=== PATIENT | male | born 1980 | race Caucasian/White ===

== ENCOUNTER 2017-08-11 21:32 | Emergency (ER) | payer BC ==
[2017-08-11 21:37] VITALS: RESP 18
[2017-08-11] MEDS ORDERED: ASPIRIN 81 MG PO STA (22:01)
--- NOTE | 2017-08-11 22:08 | ED ---
Chest Pain HPI - General Chief Complaint: Chest Pain Stated Complaint: chest heaviness/lightheaded Time Seen by Provider: 08/11/17 21:41 Source: patient, RN notes reviewed Mode of arrival: ambulatory Limitations: no limitations - History of Present Illness Initial Comments: This is a 36-year-old male who presents to the emergency department with chief complaint of chest pain. Last Friday, patient reports that he developed left shoulder pain that radiated down his arm and up to his neck. He then developed chest tightness across the chest, shortness of breath and lightheadedness. Patient states that he has had an episode like this 2 years ago and was admitted for a 24-hour observation. He states that all tests came back normal. He states that he underwent a cardiac stress test and this was also normal. Patient states that on Friday he had a mild episode of the chest tightness. He states that this morning he developed chest pain but it did not go away . He states that it has been consistent throughout the day and fluctuates between a pain level of 2/10-5/10. Patient states that this evening, at approximately 8 :20 PM, the chest pain increased in severity to 8/10. Patient describes the pain as somebody sitting on his chest. He currently rates his pain as 2/10. He states that he does not feel short of breath nor have left arm pain any longer but does feel lightheaded. He denies any diaphoresis, nausea or vomiting. He states he has a family history of cardiac disease. He states that his grandfather at the age of 38 from a heart attack and his father at the age of 58 from a heart attack. Patient denies any medical history and states he only takes a multivitamin daily. He is a nonsmoker and denies drug or alcohol use. Denies any recent hospitalizations or surgeries. - Related Data Home Medications Medication Instructions Recorded Confirmed Multivitamin [Men's Multi-Vitamin] 1 tab PO DAILY 05/04/15 08/11/17 Allergies Allergy/AdvReac Type Severity Reaction Status Date / Time No Known Allergies Allergy Verified 08/11/17 22:02 Review of Systems ROS Statement: Those systems with pertinent positive or pertinent negative responses have been documented in the HPI. ROS Other: All systems not noted in ROS Statement are negative. EKG Findings - EKG Comments: EKG Findings:: 21:48:15. Normal sinus rhythm, nonspecific ST abnormality. Ventricular rate 91 bpm, HI interval 142, QRS duration 108, QT/QTC 374/460. No evidence of ST segment elevation or depression. Repeat EKG at 2:54:31. Normal sinus rhythm. Ventricular rate 71 bpm, HI interval 154, QRS duration 104, QT/ QTC 388/421. No evidence of ST segment elevation or depression. Past Medical History Past Medical History: No Reported History Additional Past Medical History / Comment(s): HAS GALL STONE History of Any Multi-Drug Resistant Organisms: None Reported Past Surgical History: No Surgical Hx Reported Additional Past Surgical History / Comment(s): WISDOM TEETH, ERCP Past Anesthesia/Blood Transfusion Reactions: No Reported Reaction Past Psychological History: No Psychological Hx Reported Smoking Status: Never smoker Past Alcohol Use History: Rare Past Drug Use History: None Reported - Past Family History Father Family Medical History: Myocardial Infarction ([place]) General Exam - General Exam Comments Initial Comments: General: Awake and alert, well-developed; in no apparent distress. HEENT: Head atraumatic, normocephalic. Pupils are equal, round and reactive to light. Extraocular movements intact. Oropharynx moist without erythema or exudate. Neck: Supple. Normal ROM. Cardiovascular: Regular rate and rhythm. No murmurs, rubs or gallops. Chest symmetrical. No tenderness on palpation of chest wall. Respiratory: Lungs clear to auscultation bilaterally. No wheezes, rales or rhonchi. Normal respiratory effort with no use of accessory muscles. Abdomen: Soft, non-tender, non-distended. No rigidity, rebound or guarding. Normal bowel sounds in all 4 quadrants. Musculoskeletal: Normal ROM, no tenderness bilateral upper and lower extremities. Ambulating normally. Skin: Rud[place], warm and dry without rashes or lesions. Neurological: Alert and oriented x3. CN II-XII grossly intact. Speech is fluent and answers are appropriate. No focal neuro deficits. Psychiatric: Normal mood and affect. No overt signs of depression or anxiety noted. Limitations: no limitations Course Vital Signs 08/11/17 08/12/17 21:33 01:43 Temperature 98.6 F 97.6 F Pulse Rate 104 H 83 Respiratory 18 18 Rate Blood Pressure 160/92 132/77 O2 Sat by Pulse 100 99 Oximetry - Reevaluation(s) Reevaluation #1: At this time, patient is resting comfortably in bed. He states that he is asymptomatic. Lab results were discussed with patient. A repeat troponin will be drawn at 2:22. Patient is in agreement with this. 08/11/17 23:52 Chest Pain MDM - MDM This is a 36-year-old male who presents to the emergency department with chief complaint of chest pain. Patient has had 3 episodes of chest tightness since last Friday. He complains of associated shortness of breath and lightheadedness. Denies nausea or vomiting, diaphoresis. Patient states he is generally healthy and takes no medications other than a multivitamin. While in the emergency department, patient has been asymptomatic. EKG revealed a normal sinus rhythm with nonspecific ST abnormalities. No evidence of ST segment elevation or depression. CBC and CMP are unremarkable. Troponin is negative. Low likelihood for pulmonary embolism. No recent hospitalizations or surgeries , no history of DVT or PE, no coagulopathies. Patient is a nonsmoker. Discussed obtaining a d-dimer and patient declines. A repeat troponin was drawn 4 hours after the first troponin. This is negative. Repeat EKG reveals normal sinus rhythm. No evidence of ST segment elevation or depression. Patient vital signs are stable and he is in acute distress. He will be discharged home at this time. Recommended following up with his primary care provider. He is in agreement with plan and voices understanding. All questions were answered. Chest x-ray impression: Normal chest. Disposition Clinical Impression: Atypical chest pain Disposition: HOME SELF-CARE Condition: Good Instructions: Chest Pain (ED) Additional Instructions: Please follow up with primary care provider within 1-2 days. Return to emergency department if symptoms should worsen or any concerns arise. Is patient prescribed a controlled substance at d/c from ED?: No Referrals: Artur Baptiste MD [Primary Care Provider] - 1-2 days Delfina Reinoso MD [STAFF PHYSICIAN] - 1-2 days Time of Disposition: 03:06
--- NOTE | 2017-08-11 22:39 | XR ---
EXAMINATION TYPE: XR chest 2V DATE OF EXAM: 08/11/2017 COMPARISON: NONE HISTORY: Chest pain and heaviness TECHNIQUE: Frontal and lateral views of the chest are obtained. FINDINGS: Heart and mediastinum are normal. Lungs are clear. Diaphragm is normal. Bony thorax appear s normal. There are chest leads. IMPRESSION: Normal chest
[2017-08-11 22:44] LABS: ALT 42 U/L (21-72); AST 40 U/L (17-59); Albumin 4.4 g/dL (3.5-5.0); Alkaline Phosphatase 57 U/L (38-126); Anion Gap 14 mmol/L; Blood Urea Nitrogen 17 mg/dL (9-20); Calcium 9.6 mg/dL (8.4-10.2); Carbon Dioxide 23 mmol/L (22-30); Chloride 106 mmol/L (98-107); Glucose 123 mg/dL (74-99); Sodium 143 mmol/L (137-145); Total Bilirubin 0.5 mg/dL (0.2-1.3); Total Protein 7.1 g/dL (6.3-8.2)
[2017-08-11 22:49] LABS: Basophils # (A) 0.1 k/uL (0-0.2); Basophils % (A) 1 %; Eosinophils # (A) 0.2 k/uL (0-0.7); Eosinophils % (A) 3 %; HCT 46.4 % (39.0-53.0); HGB 15.6 gm/dL (13.0-17.5); Lymphocytes # (A) 2.9 k/uL (1.0-4.8); Lymphocytes % (A) 32 %; MCHC 33.7 g/dL (31.0-37.0); MCV 88.9 fL (80.0-100.0); Mean Platelet Volume 6.7; Monocytes # (A) 0.7 k/uL (0-1.0); Monocytes % (A) 8 %; Neutrophils # (A) 4.8 k/uL (1.3-7.7); Neutrophils % (A) 53 %; Platelet Count 278 k/uL (150-450); RBC 5.22 m/uL (4.30-5.90); RDW 13.2 % (11.5-15.5)
[2017-08-11 22:52] LABS: Partial Thromboplastin Time 24.6 sec (22.0-30.0)
[2017-08-11] MEDS ORDERED: SODIUM CHLORIDE 0.9% 1,000 ML IV STA (23:59)
[2017-08-12 01:45] VITALS: BP 132/77; PULSE 83; TEMP 97.6
== END 2017-08-12 03:15 | disposition home or self-care (01) ==
LOC: EC 21:32
DX: R07.89 Other chest pain (principal); R06.02 Shortness of breath; R42 Dizziness and giddiness; Z79.899 Other long term (current) drug therapy; Z82.49 Family history of ischemic heart disease and other diseases of the circulatory system
CPT/HCPCS: 36415; 71046; 80053; 83735; 84484; 85025; 85610; 85730; 93005; 96360; 99285

== ENCOUNTER → 2021-01-01 | Outpatient (CLI) | payer MEDICAID, OTHER | END | disposition home or self-care (01) | LOC: LABWHC1 07:58 | PROVIDERS: ATTEND Emergency Medicine | DX: Z20.822 Contact with and (suspected) exposure to COVID-19 (principal) | CPT/HCPCS: 87635 ==

== ENCOUNTER → 2021-01-02 | Outpatient (CLI) | payer MEDICAID, OTHER | END | disposition home or self-care (01) | LOC: LABWHC1 08:08 | PROVIDERS: ATTEND Emergency Medicine | DX: Z20.822 Contact with and (suspected) exposure to COVID-19 (principal) | CPT/HCPCS: 87635 ==

== ENCOUNTER 2022-02-03 05:31 | Emergency (ER) | payer MEDICAID ==
[2022-02-03 05:38] VITALS: TEMP 98.5
--- NOTE | 2022-02-03 05:55 | ED ---
Chest Pain HPI - General Chief Complaint: Chest Pain Stated Complaint: Chest pain Time Seen by Provider: 02/03/22 05:55 Source: patient, RN notes reviewed, old records reviewed Mode of arrival: wheelchair Limitations: no limitations - History of Present Illness Initial Comments: This is a 41-year-old male DF for evaluation of chest pain. 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 He is had a stress test in the past as well. No heart catheterization. Patient does have a strong family history of heart disease multiple family members have passed with moderate disease with his Being at a young age. Patient has no high blood pressure no high cholesterol no diabetes and is a nonsmoker. Patient states he's had chest pain we'll doing some work on the house history unable to sleep status Chest pain throughout this morning. Also admits to being an having significant anxiety of both the holidays and his mother passing MD Complaint: chest pain -: hour(s) Onset: during rest, during exertion, awoke with symptoms Pain Location: left chest, epigastric Severity: moderate Severity scale (1-10): 4 Quality: tightness Consistency: intermittent Improves With: nothing Worsens With: nothing Anginal Symptoms: other (0) Other Symptoms: other (0) Treatments Prior to Arrival: none - Related Data Home Medications Medication Instructions Recorded Confirmed Multivitamin [Men's Multi-Vitamin] 1 tab PO DAILY 05/04/15 08/11/17 Previous Rx's Medication Instructions Recorded Azithromycin [Zithromax] 500 mg PO DAILY #5 tab 02/03/22 predniSONE 50 mg PO DAILY #5 tab 02/03/22 Allergies Allergy/AdvReac Type Severity Reaction Status Date / Time No Known Allergies Allergy Verified 02/03/22 05:37 Review of Systems ROS Statement: Those systems with pertinent positive or pertinent negative responses have been documented in the HPI. ROS Other: All systems not noted in ROS Statement are negative. EKG Findings - EKG Comments: EKG Findings:: EKG is sinus 98 CO 146 QRS 104 QTc 417 - EKG Results: EKG: interpreted by SIVAN (EKG is sinus rhythm 78 CO 156 QRS 107 QTC 408) Past Medical History Past Medical History: No Reported History Additional Past Medical History / Comment(s): HAS GALL STONE History of Any Multi-Drug Resistant Organisms: None Reported Past Surgical History: No Surgical Hx Reported Additional Past Surgical History / Comment(s): WISDOM TEETH, ERCP Past Anesthesia/Blood Transfusion Reactions: No Reported Reaction Past Psychological History: Anxiety Smoking Status: Never smoker Past Alcohol Use History: Rare Past Drug Use History: None Reported - Past Family History Father Family Medical History: Myocardial Infarction ([place]) General Exam Limitations: no limitations General appearance: alert, in no apparent distress, anxious Head exam: Present: atraumatic, normocephalic, normal inspection Eye exam: Present: normal appearance, PERRL, EOMI. Absent: scleral icterus, conjunctival injection, periorbital swelling ENT exam: Present: normal exam, mucous membranes moist Neck exam: Present: normal inspection. Absent: tenderness, meningismus, lymphadenopathy Respiratory exam: Present: normal lung sounds bilaterally. Absent: respiratory distress, wheezes, rales, rhonchi, stridor Cardiovascular Exam: Present: normal rhythm, tachycardia, normal heart sounds. Absent: systolic murmur, diastolic murmur, rubs, gallop, clicks GI/Abdominal exam: Present: soft, normal bowel sounds. Absent: distended, tenderness, guarding, rebound, rigid Extremities exam: Present: normal inspection, full ROM, normal capillary refill. Absent: tenderness, pedal edema, joint swelling, calf tenderness Back exam: Present: normal inspection Neurological exam: Present: alert, oriented X3, CN II-XII intact Psychiatric exam: Present: normal affect, normal mood Skin exam: Present: warm, dry, intact, normal color. Absent: rash Course Vital Signs 02/03/22 02/03/22 02/03/22 05:35 06:09 07:00 Temperature 98.5 F Pulse Rate 113 H 86 80 Respiratory 20 12 15 Rate Blood Pressure 182/84 113/74 127/77 O2 Sat by Pulse 100 100 99 Oximetry - Reevaluation(s) Reevaluation #1: 02/03/22 06:09 Medical record is reviewed Reevaluation #2: Patient chest pain is resolved Reevaluation #3: Patient informed results and questions answered Chest Pain MDM - MDM 41-year-old male to the emergency department with anxiety severe anxiety some chest pain. Symptoms resolved here in the ER feels well and can be discharged home Disposition Clinical Impression: Chest pain, Atypical chest pain Disposition: HOME SELF-CARE Condition: Undetermined Instructions (If sedation given, give patient instructions): Chest Pain (ED) Prescriptions: predniSONE 50 mg PO DAILY #5 tab Azithromycin [Zithromax] 500 mg PO DAILY #5 tab Is patient prescribed a controlled substance at d/c from ED?: No Referrals: Artur Baptiste MD [Primary Care Provider] - 1-2 days Time of Disposition: 06:55
[2022-02-03] MEDS ORDERED: NITROGLYCERIN SL TABS 0.4 MG TAB SUBLINGUAL STA (06:01)
[2022-02-03 06:10] LABS: Basophils # (A) 0.1 k/uL (0-0.2); Basophils % (A) 1 %; Eosinophils # (A) 0.3 k/uL (0-0.7); Eosinophils % (A) 3 %; HCT 47.9 % (39.0-53.0); HGB 16.2 gm/dL (13.0-17.5); Lymphocytes # (A) 3.4 k/uL (1.0-4.8); Lymphocytes % (A) 40 %; MCH 30.1 pg (25.0-35.0); MCHC 33.9 g/dL (31.0-37.0); MCV 88.9 fL (80.0-100.0); Mean Platelet Volume 8.1; Monocytes # (A) 0.7 k/uL (0-1.0); Monocytes % (A) 8 %; Neutrophils # (A) 3.8 k/uL (1.3-7.7); Neutrophils % (A) 45 %; Platelet Count 325 k/uL (150-450); RBC 5.39 m/uL (4.30-5.90); RDW 12.3 % (11.5-15.5); WBC 8.5 k/uL (3.8-10.6)
[2022-02-03 06:19] LABS: Partial Thromboplastin Time 26.3 sec (22.0-30.0); Prothrombin Time 10.3 sec (9.0-12.0)
[2022-02-03 06:21] LABS: ALT 33 U/L (4-49); AST 33 U/L (17-59); African American GFR (CKD) >90 (>60 ml/min/1.73 sqM); Albumin 4.5 g/dL (3.5-5.0); Alkaline Phosphatase 73 U/L (38-126); Anion Gap 13 mmol/L; Blood Urea Nitrogen 16 mg/dL (9-20); Calcium 9.3 mg/dL (8.4-10.2); Carbon Dioxide 23 mmol/L (22-30); Chloride 106 mmol/L (98-107); Glucose 160 mg/dL (74-99); Non-African American GFR(CKD) >90 (>60 ml/min/1.73 sqM); Sodium 142 mmol/L (137-145); Total Bilirubin 0.8 mg/dL (0.2-1.3); Total Protein 7.7 g/dL (6.3-8.2)
--- NOTE | 2022-02-03 06:30 | XR ---
EXAMINATION TYPE: XR chest 2V DATE OF EXAM: 02/03/2022 COMPARISON: 08/11/2017 HISTORY: Chest pain TECHNIQUE: FINDINGS: Heart and mediastinum are normal. Lungs are clear. Diaphragm is normal. Bony thorax appears normal. IMPRESSION: Normal chest. No change.
[2022-02-03 07:01] VITALS: BP 127/77; PULSE 80; RESP 15
[2022-02-03] MEDS ORDERED: AZITHROMYCIN 500 MG TAB PO STA (07:02)
[2022-02-03] MEDS ORDERED: DEXAMETHASONE SOD PHOSPHATE 10 MG/ML 1 ML VIAL IVP STA (07:02)
== END 2022-02-03 07:06 | disposition home or self-care (01) ==
LOC: EC 05:31
DX: R07.89 Other chest pain (principal); F41.9 Anxiety disorder, unspecified
CPT/HCPCS: 36415; 71046; 80053; 83735; 84484; 85025; 85610; 85730; 93005; 99285